=== PATIENT | female | born 1945 | race Caucasian/White ===

== ENCOUNTER 2016-10-10 15:24 | Outpatient (CLI) | payer MEDICARE, OTHER | END 2016-10-10 15:25 | disposition home or self-care (01) | DX: M17.12 Unilateral primary osteoarthritis, left knee (principal) ==

== ENCOUNTER 2022-04-28 08:00 | Outpatient (CLI) | payer MEDICARE, OTHER ==
[2022-04-28 16:11] LABS: EOSINOPHILS # (AUTO) 0.1 10^3/uL (0.0-0.7); EOSINOPHILS % (AUTO) 3.5 %; HCT - HEMATOCRIT 42.7 % (37.0-47.0); HGB - HEMOGLOBIN 14.1 g/dL (12.0-16.0); LYMPHOCYTES # (AUTO) 1.3 10^3/uL (1.5-3.5); LYMPHOCYTES % (AUTO) 32.7 %; MEAN CORPUSCULAR HEMOGLOBIN 29.2 pg (27.0-31.0); MEAN CORPUSCULAR VOLUME 88.4 fL (81.0-99.0); MEAN PLATELET VOLUME 9.9 fL (7.9-10.8); MONOCYTES # (AUTO) 0.5 10^3/uL (0.0-1.0); MONOCYTES % (AUTO) 12.3 %; NEUTROPHILS % (AUTO) 50.2 %; PLT - PLATELET COUNT 243 10^3/uL (130-450); RED BLOOD COUNT 4.83 10^6/uL (4.20-5.40)
[2022-04-28 16:30] LABS: ALBUMIN 4.5 g/dL (3.2-5.5); ALBUMIN/GLOBULIN RATIO 1.5 (1.0-2.2); ALKALINE PHOSPHATASE 84 IU/L (42-121); ALT ALANINE AMINOTRANSFERASE 16 IU/L (10-60); AST ASPARTATE AMINOTRANSFERASE 21 IU/L (10-42); BUN - BLOOD UREA NITROGEN 21 mg/dL (6-20); CALCIUM 9.5 mg/dL (8.5-10.3); CARBON DIOXIDE - CO2 30 mmol/L (21-32); CHLORIDE 101 mmol/L (101-111); CHOL/HDL RATIO 3.6 (<4.4); CHOLESTEROL 209 mg/dL; CREATININE 0.6 mg/dL (0.4-1.0); GFR - MDRD 96 (>89); GLUCOSE 90 mg/dL (70-100); HDL CHOLESTEROL 58 mg/dL; LDL CHOLESTEROL,CALCULATED 133 mg/dL; LDL/HDL RATIO 2.3 (<4.4); POTASSIUM 3.8 mmol/L (3.5-5.0); SODIUM 139 mmol/L (135-145); TOTAL PROTEIN 7.5 g/dL (6.7-8.2); TRIGLYCERIDES 89 mg/dL; VLDL CHOLESTEROL 18 mg/dL
[2022-04-28 16:41] LABS: THYROID STIMULATING HORMONE 4.23 uIU/mL (0.34-5.60)
[2022-04-28 16:43] LABS: FREE T4 (FREE THYROXINE) 0.7 ng/dL (0.58-1.64)
== END 2022-04-28 23:59 | disposition home or self-care (01) ==
LOC: LAB.R 08:00
PROVIDERS: ATTEND Internal Medicine
DX: Z00.00 Encounter for general adult medical examination without abnormal findings (principal); C43.9 Malignant melanoma of skin, unspecified; E78.5 Hyperlipidemia, unspecified; M81.0 Age-related osteoporosis without current pathological fracture; H40.003 Preglaucoma, unspecified, bilateral; E03.8 Other specified hypothyroidism; Z79.899 Other long term (current) drug therapy; H35.3290 Exudative age-related macular degeneration, unspecified eye, stage unspecified
CPT/HCPCS: 80053; 80061; 82306; 83721; 84439; 84443; 85025

== ENCOUNTER 2022-06-23 10:09 | Outpatient (CLI) | payer MEDICARE, OTHER | END 2022-06-23 10:10 | disposition critical access hospital (66) | LOC: EMS 10:09 | DX: S99.912A Unspecified injury of left ankle, initial encounter (principal); W00.0XXA Fall on same level due to ice and snow, initial encounter; Y92.008 Other place in unspecified non-institutional (private) residence as the place of occurrence of the external cause | CPT/HCPCS: A0425; A0429 ==

== ENCOUNTER 2022-06-23 10:26 | Emergency (ER) | payer MEDICARE, OTHER ==
[2022-06-23] MEDS ORDERED: IBUPROFEN 600 MG TABLET PO STA (10:38)
[2022-06-23] MEDS ORDERED: HYDROcod/ACETAM 5/325 MG TABLET PO STA (10:38)
--- NOTE | 2022-06-23 10:39 | ED Physician Documentation ---
PD HPI LOWER EXT INJURY - Stated complaint Stated Complaint: FALL - History obtained from History obtained from: Patient, EMS - History of Present Illness PD HPI LOW EXT INJURY LOCATION: Left, Ankle, Other (and left wrist) Type of injury: Fall (she states she went out to get mail for her neighbor and slipped on ice, falling to left and twisting ankle. pain with attempted walking/standing. wrist sore as well.) Where injury occurred: Home, Street (going out to [employer] Timing - onset: How many hours ago (1), Today Timing - duration: Hours (1) Timing - details: Abrupt onset, Still present Improved by: Rest Worsened by: Moving, Palpating Associated symptoms: Swelling. No: Weakness, Numbness Similar symptoms before: Has not had sx before Recently seen: Not recently seen Review of Systems Constitutional: denies: Fever Nose: denies: Rhinorrhea / runny nose, Congestion Throat: denies: Sore throat Respiratory: denies: Cough Musculoskeletal: denies: Neck pain, Back pain Neurologic: denies: Focal weakness, Numbness, Confused, Headache, Head injury PD PAST MEDICAL HISTORY - Past Medical History Cardiovascular: None Respiratory: None Endocrine/Autoimmune: None - Allergies Allergies/Adverse Reactions: Allergies Allergy/AdvReac Type Severity Reaction Status Date / Time hydrocortisone Allergy Unknown Verified 06/23/22 10:40 [From Cortizone-10] - Living Situation Living Arrangement: reports: At home PD ED PE NORMAL - Vitals Vital signs reviewed: Yes - General General: Alert and oriented X 3, No acute distress, Well developed/nourished - HEENT HEENT: Atraumatic - Neck Neck: Supple, no meningeal sign, No bony TTP, No adenopathy - Derm Derm: Normal color, Warm and dry - Extremities Extremities: Other (left wrist with mild tenderness dorsal with mild swelling. no deformity. no snuffbox tender. left ankle with tenderness laterally. achilles intact. nor color and cap refill in toes. ) - Neuro Neuro: Alert and oriented X 3, No motor deficit, No sensory deficit, Normal speech Eye Opening: Spontaneous Motor: Obeys Commands Verbal: Oriented GCS Score: 15 Results - Vitals Vitals: Vital Signs - 24 hr 06/23/22 06/23/22 10:35 10:45 Temperature 36.7 C Heart Rate 72 72 Respiratory 16 16 Rate Blood Pressure 110/83 H 137/87 H O2 Saturation 96 99 Oxygen O2 Source Room air - Rads (name of study) left wrist Radiology: Prelim report reviewed (possible triquetral avulsion on lateral view. ), See rad report left ankle Radiology: Prelim report reviewed (distal fibular fracture, nondisplaced. ), See rad report Procedures - Splint (location) - Minor left ankle Splint applied by: Tech Type of splint: Other (boot orthosis) Other: Patient tolerated well, No complications, Neurovascular intact, Crutches provided PD Medical Decision Making - ED course Complexity details: reviewed results, considered differential (fibular fracture. since it is cold and snowy out, i feel use of a boot orthosis would be safer and warmer compared to splint. She can use crutches. i don't think her wrist is tender enough to need splint there too. ), d/w patient Departure - Departure Disposition: 01 Home, Self Care Clinical Impression: Fall from slipping on ice Qualifiers: Encounter type: initial encounter Qualified Code(s): W00.9XXA - Unspecified fall due to ice and snow, initial encounter Lateral malleolar fracture Qualifiers: Encounter type: initial encounter Fracture type: closed Fracture alignment: displaced Laterality: left Qualified Code(s): S82.62XA - Displaced fracture of lateral malleolus of left fibula, initial encounter for closed fracture Wrist sprain Qualifiers: Encounter type: initial encounter Laterality: left Qualified Code(s): S63.502A - Unspecified sprain of left wrist, initial encounter Condition: Stable Record reviewed to determine appropriate education?: Yes Instructions: ED Sprain Wrist, ED Fx Ankle Lateral Malleolus Follow-Up: Sultana Henderson MD [Physician No Access] - Comments: You do have a fracture of the outer part of your ankle called the lateral malleolus or the end of the fibula. This can be treated with a cast boot which provides a little better insulation and protection of your foot given the current weather. However you need to be nonweightbearing or minimally weightbearing with it. Use the crutches to be off of the ankle is much as possible for the next couple of weeks anyway. This will be about a 4 to 6-week healing process. Follow-up with your orthopedist in about a week to week and a half, call today for an appointment for that timeframe. I would initially sleep with your cast boot in place to help hold it in position. Continue this until otherwise advised by orthopedist. Ice elevate and rest your ankle often to reduce swelling. Tylenol ibuprofen as needed for pains. The x-ray of your wrist shows likely a's mall spur or calcification on the back of the wrist. Consideration would be a small avulsion fracture or splinter type fracture off the back bone. This would not necessarily need particular casting or treatment per se. Activity as tolerated. Discharge Date/Time: 06/23/22 12:36
[2022-06-23 10:56] VITALS: BP 137/87
--- NOTE | 2022-06-23 11:02 | XRAY Report ---
PROCEDURE: Ankle 3 View LT INDICATIONS: fall on ice TECHNIQUE: 3 views of the ankle were acquired. COMPARISON: None FINDINGS: Bones: There is a minimally displaced oblique distal fibular fracture extending to the articular surf to. There is a nondisplaced posterior malleolar fracture. There may also be a medial malleolar fract ure. Ankle mortise is normally aligned. No suspicious bony lesions. Soft tissues: No tibiotalar joint effusion. Achilles tendon appears normal. IMPRESSION: Distal fibular fracture, posterior malleolar fracture, and possible medial malleolar fra cture. Comment: Recommend CT ankle. Reviewed by: Haja Alonso MD on 06/23/2022 11:00 AM [facility] Approved by: Haja Alonso MD on 06/23/2022 11:00 AM [facility] Station ID: [id number]
--- NOTE | 2022-06-23 11:03 | XRAY Report ---
PROCEDURE: Wrist 3 View LT INDICATIONS: fall on ice. Lateral wrist pain. TECHNIQUE: 3 views of the wrist were acquired. COMPARISON: None FINDINGS: Bones: Lateral film is not a true lateral film. There is a question of a triquetral fracture on the l ateral view. No suspicious bony lesions. Soft tissues: No suspicious soft tissue calcifications. IMPRESSION: Question triquetral fracture. Recommend correlation with clinical examination. Reviewed by: Haja Alonso MD on 06/23/2022 11:02 AM [facility] Approved by: Haja Alonso MD on 06/23/2022 11:02 AM PST Station ID: [id number]
== END 2022-06-23 12:36 | disposition home or self-care (01) ==
LOC: EDUNIT# → ED 10:26
DX: S82.62XA Displaced fracture of lateral malleolus of left fibula, initial encounter for closed fracture (principal); W00.0XXA Fall on same level due to ice and snow, initial encounter; Y93.89 Activity, other specified
CPT/HCPCS: 73110; 73610; 99284; A9270